=== PATIENT | female | born 1965 | race Two or more races ===

== ENCOUNTER 2019-08-11 13:01 | Emergency (ER) | payer OTHER ==
[~2019-08-11] VITALS: Ht 157.5 cm; Wt 63.5 kg
[2019-08-11] MEDS ORDERED: TOPROL XL25 M1 PO (13:44)
== END 2019-08-11 16:25 | disposition home or self-care (01) ==
LOC: ER 13:01
DX: S90.112A Contusion of left great toe without damage to nail, initial encounter (principal); W22.8XXA Striking against or struck by other objects, initial encounter; Y93.89 Activity, other specified; Y92.89 Other specified places as the place of occurrence of the external cause; Y99.8 Other external cause status